=== PATIENT | female | born 1980 | race Caucasian/White ===

== ENCOUNTER 2025-10-08 06:09 | Observation (INO) | payer BC ==
[2025-10-08] MEDS ORDERED: PROPOFOL 20 ML ONE (06:56)
[2025-10-08] MEDS ORDERED: fentaNYL PF 100 MCG/2 ML SYRINGE ONE (06:56)
[2025-10-08] MEDS ORDERED: Lidocaine 1% PF 5 ML VIAL ONE (06:56)
[2025-10-08] MEDS ORDERED: Vancomycin 1 GM/200 ML (FROZEN) BAG ONE (07:18)
[2025-10-08] MEDS ORDERED: CEFAZOLIN 2 GM VIAL ONE (07:25)
[2025-10-08] MEDS ORDERED: Ropivacaine 0.2% 550 ML 550 ML NERVE BLCK SCH (07:45)
[2025-10-08] MEDS ORDERED: Ondansetron PF 4 MG/2 ML Vial IVP PRN (07:45)
[2025-10-08] MEDS ORDERED: HYDROcodone/Acetaminophen 10/325 mg Tablet PO PRN ×2 (07:45)
[2025-10-08] MEDS ORDERED: Ondansetron PF 4 MG/2 ML Vial ONE (07:52)
[2025-10-08] MEDS ORDERED: Ropivacaine 0.5% HCl/PF (150 MG/30 ML VIAL) ONE (07:58)
[2025-10-08] MEDS ORDERED: Bisacodyl 10 MG SUPP PR PRN (09:30)
[2025-10-08] MEDS ORDERED: Milk Of Magnesia 30 ML UDCUP PO PRN (09:30)
[2025-10-08] MEDS ORDERED: HYDROcodone/Acetaminophen 7.5/325 mg Tablet PO PRN (09:30)
[2025-10-08 11:24] VITALS: BMI 25.0
[2025-10-08] MEDS: Ketorolac Tromethamine 30 MG (1 mL) VIAL IVP SCH (12:07)
[2025-10-08] MEDS: Famotidine 20 MG TAB PO SCH (20:56)
[2025-10-08] MEDS: Vancomycin 1 GM in Premix 1 BAG IVPB SCH (21:11)
[2025-10-09 08:40] VITALS: BP 121/79; TEMP 98.2
[2025-10-09] MEDS: Acetaminophen 500 MG TAB PO PRN (09:10)
[2025-10-09] MEDS: Metamucil PACK PO SCH (09:11)
[2025-10-09] MEDS: Pantoprazole 40 MG DR.TAB PO SCH (09:11)
[2025-10-09] MEDS: Methocarbamol 500 MG TAB PO PRN (09:11)
== END 2025-10-09 11:40 | disposition home or self-care (01) ==
LOC: SDC 06:09 → SURG B 10:44
PROVIDERS: ADMIT Orthopaedic Surgery; ATTEND Orthopaedic Surgery
PROC: 0MQN4ZZ Repair Right Knee Bursa and Ligament, Percutaneous Endoscopic Approach (ICD-10-PCS; principal; 2025-10-08)
PROC: 3E0T3BZ Introduction of Anesthetic Agent into Peripheral Nerves and Plexi, Percutaneous Approach (ICD-10-PCS; 2025-10-08)
DX: S83.511A Sprain of anterior cruciate ligament of right knee, initial encounter (principal); Z90.89 Acquired absence of other organs; Z90.710 Acquired absence of both cervix and uterus; Z88.0 Allergy status to penicillin; W19.XXXA Unspecified fall, initial encounter; Y93.23 Activity, snow (alpine) (downhill) skiing, snowboarding, sledding, tobogganing and snow tubing
CPT/HCPCS: A4306; C1713; C1889; J1100; J1885; J2250; J2405; J2704; J2795; J3010; J3373; J7042